=== PATIENT | male | born 2005 | race Caucasian/White ===

== ENCOUNTER 2025-04-22 17:08 | Emergency (ER) | payer MEDICAID ==
[~2025-04-22] VITALS: Ht 175.3 cm; Wt 90.0 kg
[2025-04-22 17:19] VITALS: BP 156/92; PULSE 76; RESP 18; TEMP 98.4; O2SAT 99
[2025-04-22] MEDS ORDERED: SULF-261 PO (18:48)
[2025-04-22] MEDS ORDERED: CEPH-558 PO (18:48)
== END 2025-04-22 19:13 | disposition home or self-care (01) ==
LOC: EMS 17:08
DX: L03.032 Cellulitis of left toe (principal); L03.031 Cellulitis of right toe; I10 Essential (primary) hypertension
CPT/HCPCS: 99283; Z7502